=== PATIENT | female | born 2000 | race Caucasian/White ===

== ENCOUNTER 2021-06-05 19:05 | Inpatient (IN) | payer OTHER ==
[~2021-06-05] VITALS: Ht 161 cm; Wt 107.8 kg
[2021-06-05 19:55] VITALS: BP 122/74
[2021-06-05 21:53] LABS: BASOPHILS % (AUTO) 0 % (0-10); EOSINOPHILS % (AUTO) 0 % (0-10); HEMATOCRIT 35 % (35-52); HEMOGLOBIN 11.2 g/dL (11.5-16.0); LYMPHOCYTES # (AUTO) 2.1 10^3/uL (1.0-4.0); LYMPHOCYTES % (AUTO) 22 % (12-44); MEAN CORPUSCULAR HEMOGLOBIN 30 pg (25-34); MEAN CORPUSCULAR HGB CONC 32 g/dL (32-36); MEAN CORPUSCULAR VOLUME 92 fL (80-99); MEAN PLATELET VOLUME 9.8 fL (9.0-12.2); MONOCYTES # (AUTO) 0.7 10^3/uL (0.0-1.0); MONOCYTES % (AUTO) 7 % (0-12); NEUTROPHILS # (AUTO) 6.4 10^3/uL (1.8-7.8); NEUTROPHILS % (AUTO) 69 % (42-75); PLATELET COUNT 303 10^3/uL (130-400); WHITE BLOOD COUNT 9.3 10^3/uL (4.3-11.0)
[2021-06-05] MEDS: CATHETER FLUSH 10 ML SYR IV SCH (22:00)
[2021-06-05] MEDS ORDERED: TERBUTALINE INJ 1 MG/ML (BRETHINE) AMP SC PRN (22:30)
[2021-06-05] MEDS ORDERED: LACTATED RINGERS 1,000 ML IV SCH (22:30)
[2021-06-05] MEDS: D5 LR IV SOLUTION 1,000 ML IV SCH (22:34)
[2021-06-05 22:35] VITALS: BP 117/58
[2021-06-05 23:05] VITALS: BP 112/54
[2021-06-05 23:32] VITALS: BP 132/68
[2021-06-06] VITALS (57 sets, daily range): BP systolic 94–128; BP diastolic 51–77
[2021-06-06] MEDS: CATHETER FLUSH 10 ML SYR IV SCH ×2 (06:00→14:43)
[2021-06-06] MEDS: D5 LR IV SOLUTION 1,000 ML IV SCH ×2 (06:46→14:44)
--- NOTE | 2021-06-06 06:52 | History & Physical-OB ---
OB - Chief Complaint & HPI Date/Time Date of Admission: Date of Admission: Jun 05, 2021 at 19:05 Date seen by a Provider: Jun 06, 2021 Time Seen by a Provider: 06:40 Chief Complaint/History OB-Reason for Admission/Chief: Induction of Labor Hx : 1 Hx Para: 0 Expected Date of Delivery: Jun 02, 2021 Gestational Age in Weeks: 40 Gestational Age in Days: 3 Indication for induction: post dates Admission Nurse Assessment Rev: Yes History of Labs GBS negative at 36 weeks. Allergies and Home Medications Allergies Coded Allergies: No Known Drug Allergies (Unverified , 06/05/21) Patient Home Medication List Home Medication List Reviewed: Yes OB - History Hx of Present Care: Yes Ultrasounds: Normal mid trimester US Obstetrical Complications: None Medical Complications: None Patient Past Medical History no chronic medical problems OB - Admission Exam Physical Exam Vitals: Vital Signs 06/06/21 06/06/21 01:00 04:45 Temp 36.0 Pulse 85 Resp 18 B/P (MAP) 94/52 (66) O2 Delivery Room Air HEENT: Moist Membranes Heart: Rhythm Normal Lungs: Clear Abdomen: Gravid Cervical Dilatation: 1cm Effacement: 50% Station: -3 Membranes: Intact Heart Rate: 140's Accelerations: Accelerations Present Short Term Variability: Present Channel Cementer Outsole Machine Variability: Average (6-25) Contractions on Admission: >10 Minutes Apart Intensity: Mild Cantu Scoring Tool (Modified) Dilation (cm): 1-2cm (1) Effacement (%): 31-51% (1) Descent/Station: -3 (0) Cervix Consistency: Medium(1) Cervix Position: Posterior (0) Cantu Score: 3 Labs Laboratory Tests Test 06/05/21 21:25 Range/Units White Blood Count 9.3 4.3-11.0 10^3/uL Red Blood Count 3.76 L 3.80-5.11 10^6/uL Hemoglobin 11.2 L 11.5-16.0 g/dL Hematocrit 35 35-52 % Mean Corpuscular Volume 92 80-99 fL Mean Corpuscular Hemoglobin 30 25-34 pg Mean Corpuscular Hemoglobin Concent 32 32-36 g/dL Red Cell Distribution Width 14.5 10.0-14.5 % Platelet Count 303 130-400 10^3/uL Mean Platelet Volume 9.8 9.0-12.2 fL Immature Granulocyte % (Auto) 1 % Neutrophils (%) (Auto) 69 42-75 % Lymphocytes (%) (Auto) 22 12-44 % Monocytes (%) (Auto) 7 0-12 % Eosinophils (%) (Auto) 0 0-10 % Basophils (%) (Auto) 0 0-10 % Neutrophils # (Auto) 6.4 1.8-7.8 10^3/uL Lymphocytes # (Auto) 2.1 1.0-4.0 10^3/uL Monocytes # (Auto) 0.7 0.0-1.0 10^3/uL Eosinophils # (Auto) 0.0 0.0-0.3 10^3/uL Basophils # (Auto) 0.0 0.0-0.1 10^3/uL Immature Granulocyte # (Auto) 0.1 0.0-0.1 10^3/uL OB - Assessment/Plan/Diagnosis Assessment Assessment: induction of labor (at 40w3d on admit) Admission Dx 1. IUP at term 40w3d Admission Status: Inpatient Order (span 2 midnights) Reason for Inpatient Admission: induction of labor Plan Plan: Induction Induction Method: per Misoprostol Protocol Other Plan -epidural planned -GAGAN Wiley MD Jun 06, 2021 06:52
[2021-06-06] MEDS ORDERED: OXYTOCIN PRE-MIX DRIP 500 ML IV SCH ×2 (07:00→18:15)
[2021-06-06] MEDS ORDERED: fentaNYL 2 mcg/ml BUPIVA 0.125 100 ML ONE (09:11)
[2021-06-06] MEDS ORDERED: BUPIVACAINE 0.25% 30 ML (SENSORCAINE) VIAL ONE (09:59)
[2021-06-06] MEDS ORDERED: fentaNYL INJ 100 MCG/2 ML AMP ONE (09:59)
[2021-06-06] MEDS ORDERED: ONDANSETRON 4 MG/2 ML (SDV) Z0FRAN IV PRN (10:00)
[2021-06-06] MEDS ORDERED: CATHETER FLUSH 10 ML SYR IV PRN (10:00)
[2021-06-06] MEDS ORDERED: diphenhydrAMINE 50 MG/ML INJ (BENADRYL) IV PRN (10:00)
[2021-06-06] MEDS ORDERED: LACTATED RINGERS 1,000 ML IV ONE (10:00)
[2021-06-06] MEDS ORDERED: NALOXONE 0.4 MG/ML 1 ML (NARCAN) VIAL IV PRN ×2 (10:00→18:15)
[2021-06-06] MEDS ORDERED: fentaNYL 2 mcg/ml BUPIVA 0.125 100 ML IV SCH (10:00)
[2021-06-06] MEDS ORDERED: MEPIVACAINE (CARBOCAINE) 2% 50 ML VIAL ONE (17:22)
--- NOTE | 2021-06-06 18:11 | OB Labor & Delivery Record ---
L&D History Date of Service Date of Service: Jun 06, 2021 History Expected Date of Delivery: Jun 02, 2021 Gestational Age in Weeks: 40 Hx : 1 Hx Para: 1 Complications Events: Routine care Operative Indications (Cesarea: N/A-Vaginal Delivery Intrapartal Events: None L&D Stage1 Stage One Onset of Labor - Date: Jun 06, 2021 Onset of Labor - Time: 06:45 Monitors and Tracing Monitor Mode: Internal Heart Rate: 140 Monitor Accelerations: Uniform Monitor Decelerations: None Station: -3 Usp Variability: Average (6-10) Short Term Variability: Present Presentation: Vertex Vital Signs VS - Last 72 Hours, by Label 06/05/21 06/05/21 06/05/21 06/05/21 19:55 19:55 22:35 23:05 Temp 36.0 36.0 36.0 Pulse 92 92 86 85 Resp 18 18 18 18 B/P (MAP) 122/74 (90) 117/58 (77) 112/54 (73) Pulse Ox 99 99 O2 Delivery Room Air Room Air Room Air Room Air 06/05/21 06/06/21 06/06/21 06/06/21 23:32 01:00 03:45 04:45 Temp 36.0 Pulse 81 75 83 85 Resp 18 18 18 18 B/P (MAP) 132/68 (89) 109/72 (84) 113/56 (75) 94/52 (66) O2 Delivery Room Air Room Air Room Air Room Air 06/06/21 06/06/21 06/06/21 06/06/21 05:45 06:45 07:32 08:51 Temp 36.0 36.5 36.5 Pulse 67 80 90 Resp 18 18 18 B/P (MAP) 102/60 (74) 119/69 (86) 111/59 (76) O2 Delivery Room Air Room Air Room Air 06/06/21 06/06/21 06/06/21 06/06/21 09:23 09:40 09:50 10:04 Temp 35.7 Pulse 90 87 96 109 Resp 18 18 18 18 B/P (MAP) 124/67 (86) 113/64 (80) 122/64 (83) 111/77 (88) Pulse Ox 99 O2 Delivery Room Air Room Air Room Air Room Air 06/06/21 06/06/21 06/06/21 06/06/21 10:07 10:10 10:13 10:16 Pulse 109 109 92 97 Resp 18 18 18 18 B/P (MAP) 109/73 (85) 119/77 (91) 116/66 (83) 109/63 (78) Pulse Ox 100 100 99 99 O2 Delivery Room Air Room Air Room Air Room Air 06/06/21 06/06/21 06/06/21 06/06/21 10:19 10:22 10:25 10:28 Temp 36.6 Pulse 100 84 82 83 Resp 18 18 18 18 B/P (MAP) 110/60 (77) 103/63 (76) 108/60 (76) 108/60 (76) Pulse Ox 99 99 98 98 O2 Delivery Room Air Room Air Room Air Room Air 06/06/21 06/06/21 06/06/21 06/06/21 10:30 10:38 10:45 10:50 Pulse 82 82 81 98 Resp 18 18 18 18 B/P (MAP) 112/60 (77) 109/57 (74) 115/60 (78) 108/56 (73) Pulse Ox 98 99 99 98 O2 Delivery Room Air Room Air Room Air Room Air 06/06/21 06/06/21 06/06/21 06/06/21 10:55 11:00 11:10 11:30 Temp 36.6 Pulse 93 89 82 77 Resp 18 18 18 18 B/P (MAP) 109/59 (76) 111/58 (75) 117/60 (79) 103/58 (73) Pulse Ox 99 100 99 98 O2 Delivery Room Air Room Air Room Air Room Air Signs of Distress by FHT Signs of Distress no Rupture of Membranes Spontaneous Ruture of Membrane: No Amniotic Membrane Rupture Time: 0645 Amniotic Membrane Fluid Desc.: Clear Vaginal Bleeding Description: None L&D Stage2 Stage Two Stage II Date: Jun 06, 2021 Stage II Time: 17:31 Monitors and Tracing Monitor Mode: Internal Heart Rate: 140 Monitor Accelerations: Uniform Usp Variability: Average (6-10) Short Term Variability: Present Position: Left Occiput Anterior Presentation: Vertex Signs of Distress by FHT Signs of Distress no Cord Descript/Complications Cord Vessel Description: 3 Vessels Delivery Type Infant Delivery Method: Spontaneous Vaginal Anterior Shoulder: Left Episiotomy/Perineal Laceration Laceraction(s)/Extensions: Yes Episiotomy Description: Midline, Perineal Extension/lac, 2nd degree Sutures Used: Vicryl Condition of Infant Delivery 1 minute Comment: 9 5 minute Comment: 9 Condition of Infant Condition of Infant: Living Exam: No Observed Abnormalities Resuscitation Resuscitation: N/A - Spontaneous Resp L&D Stage3 Stage Three Stage III Date: Jun 06, 2021 Stage III Time: 17:35 Pictocin Pitocin Administration mu/min: 12 Pitocin ml/hr: 12 Pitocin Administration Comment: 1354- PITOCIN INCREASED Placenta Delivery Placenta Delivery: Spontaneous Delivery Summary Summary Estimated blood loss (mL): 400 Condition of Delivery Examined: Cervix Examined Post Hemorrhage: No Intervention Required none GAGAN BRAY MD Jun 06, 2021 18:11
[2021-06-06] MEDS ORDERED: BENZOCAINE/MENTHOL (DERMOPLAST) 56 ML CAN TP PRN (18:15)
[2021-06-06] MEDS ORDERED: MEASLES,MUMPS,RUBELLA 1 EA INJ SQ ONE (18:15)
[2021-06-06] MEDS ORDERED: TETANUS,DIPTH,PERTUSS P/F (BOOSTRIX) 0.5 ML VIAL IM ONE (18:15)
[2021-06-06] MEDS ORDERED: WITCH HAZEL(TUCKS) 40 EA JAR TOP PRN (18:15)
[2021-06-06] MEDS ORDERED: CATHETER FLUSH 10 ML SYR IV SCH (22:00)
[2021-06-06] MEDS: IBUPROFEN 600 MG (MOTRIN) TAB PO SCH (22:51)
[2021-06-06] MEDS: DOCUSATE SODIUM 100 MG (COLACE) CAP PO SCH (22:52)
[2021-06-06] MEDS: ACETAMINOPHEN 500 MG TAB (TYLENOL) PO SCH (22:52)
[2021-06-07 04:00] VITALS: BP 117/58
[2021-06-07 06:01] LABS: BASOPHILS % (AUTO) 0 % (0-10); EOSINOPHILS % (AUTO) 0 % (0-10); HEMATOCRIT 28 % (35-52); HEMOGLOBIN 8.9 g/dL (11.5-16.0); LYMPHOCYTES # (AUTO) 2.7 10^3/uL (1.0-4.0); LYMPHOCYTES % (AUTO) 20 % (12-44); MEAN CORPUSCULAR HGB CONC 32 g/dL (32-36); MEAN CORPUSCULAR VOLUME 91 fL (80-99); MEAN PLATELET VOLUME 9.7 fL (9.0-12.2); MONOCYTES # (AUTO) 1.3 10^3/uL (0.0-1.0); MONOCYTES % (AUTO) 9 % (0-12); NEUTROPHILS # (AUTO) 9.6 10^3/uL (1.8-7.8); NEUTROPHILS % (AUTO) 70 % (42-75); PLATELET COUNT 261 10^3/uL (130-400); WHITE BLOOD COUNT 13.7 10^3/uL (4.3-11.0)
[2021-06-07 06:04] LABS: MEAN CORPUSCULAR HEMOGLOBIN 29 pg (25-34)
[2021-06-07] MEDS: IBUPROFEN 600 MG (MOTRIN) TAB PO SCH ×3 (06:43→18:09)
[2021-06-07 07:35] VITALS: BP 116/73
[2021-06-07] MEDS: DOCUSATE SODIUM 100 MG (COLACE) CAP PO SCH (08:33)
[2021-06-07] MEDS: ACETAMINOPHEN 500 MG TAB (TYLENOL) PO SCH ×2 (08:34→14:15)
[2021-06-07 12:00] VITALS: BP 107/59
[2021-06-07 16:56] VITALS: BP 102/62
--- NOTE | 2021-06-07 19:37 | Discharge Inst-Women's Service ---
Discharge Inst-Women's Serv Depart Medication/Instructions New, Converted or Re-Newed RX: Other Instructions May take over the counter ibuprofen 2-3 tabs every 6hr prn cramps or pain. Problems Reviewed?: Yes Consults/Follow Up Additional Follow Up: Yes (Dr Bray in 6 weeks at [facility]) Activity Activity: Activity as Tolerated Nothing Inside Vagina: No [place] (for 6 weeks. You will need to heal.) Diet Discharge Diet: Regular Diet Return to The Hospital For: as below Symptoms to Report to : Bleeding Excessive, Constipation(Persistant), Fever Over 101 Degrees F, Vaginal Discharge Foul For Any Problems or Questions: Contact Your Physician GAGAN BRAY MD Jun 07, 2021 19:37
--- NOTE | 2021-06-07 19:40 | Discharge Summary ---
Diagnosis/Chief Complaint Date of Admission Jun 05, 2021 at 19:05 Date of Discharge Jun 07, 2021 Admission Diagnosis Admission Diagnosis 1. IUP at 40 weeks Discharge Diagnosis 1. IUP at 40 weeks 2. Anemia, post delivery Chief Complaint/HPI Chief Complaint/HPI 21 yo G1 now T1L1 who initially presented to L&D for induction of labor due to post dates. Her EDC was June 03, 2021. Discharge Summary-OBS Procedures 1. Epidural per anesthesia 2. 3. Repair of 2nd degree perineal laceration beyond the MLE Discharge Physical Examination Allergies: Coded Allergies: No Known Drug Allergies (Unverified , 06/05/21) Vitals & I&Os Intake and Output 06/07/21 00:00 Intake Total 2000 ml Balance 2000 ml Vital Sign - Last 12Hours Date Time Temp Pulse Resp B/P (MAP) Pulse Ox O2 Delivery O2 Flow Rate FiO2 06/07/21 16:56 36.2 86 18 102/62 (75) 98 Room Air General Appearance: No Acute Distress Respiratory: Clear to Auscultation Abdominal: Soft (with uterus firm) Hospital Course Was the Problem List Reviewed?: Yes Labs Laboratory Tests 06/07/21 05:50: White Blood Count 13.7H, Red Blood Count 3.02L, Hemoglobin 8.9#L, Hematocrit 28L , Mean Corpuscular Volume 91, Mean Corpuscular Hemoglobin 29, Mean Corpuscular Hemoglobin Concent 32, Red Cell Distribution Width 14.5, Platelet Count 261, Mean Platelet Volume 9.7, Immature Granulocyte % (Auto) 1, Neutrophils (%) (Auto) 70, Lymphocytes (%) (Auto) 20, Monocytes (%) (Auto) 9, Eosinophils (%) (Auto) 0, Basophils (%) (Auto) 0, Neutrophils # (Auto) 9.6H, Lymphocytes # (Auto) 2.7, Monocytes # (Auto) 1.3H, Eosinophils # (Auto) 0.0, Basophils # (Auto) 0.0, Immature Granulocyte # (Auto) 0.1 Discharge Instructions to patient/family Please see electronic discharge instructions given to patient. Discharge Medications Reviewed and agree with Discharge Medication list on patient's Discharge Instruction sheet GAGAN BRAY MD Jun 07, 2021 19:40
[2021-06-07] MEDS ORDERED: FERR-84 PO (19:42)
[2021-06-07] MEDS ORDERED: DCS100C PO (19:42)
--- NOTE | 2021-06-10 19:09 | Physician Query Clarification ---
PQ-Further Specificity Admission/Discharge Admission Date: Jun 05, 2021 at 19:05 Discharge Date: Jun 07, 2021 at 20:05 The medical record reflects the following clinical scenario: History/Risk Factors: Anemia, post delivery, blood loss 400 mL Clinical Findings: Hgb 11.2 on admission, 8.9 on 06/07 Treatment: Ferrous Sulfate, 325mg Question: Can you further specify anemia per the clinical indicators above? Please document a response in the Progress Notes or Discharge Summary. 1. Acute blood loss anemia, anemia puerperium 2. anemia, not acute blood loss 3. Other, with explanation of the clinical findings. 4. Clinically undetermined, no explanation for the clinical findings. PHYSICIAN RESPONSE Can you specify per above: 1 Please remember a lack of response to the above will prompt a phone page by CDI/Coding staff. In responding to this query, please exercise your independent professional judgment. The purpose of this communication is to more accurately reflect the complexity of your patients condition. The fact that a question is asked does not imply that any particular answer is desired or expected. Thank you for your timely response to this clarification. Requestors name: Bibi THIS PHYSICIAN QUERY FORM IS A PERMANENT PART OF THE MEDICAL RECORD BIBI LITTLEJOHN Jun 10, 2021 19:09 GAGAN BRAY MD Jun 12, 2021 06:49
== END 2021-06-07 20:05 | disposition home or self-care (01) | DRG 806 ==
LOC: LDRP 19:05
PROVIDERS: ADMIT Family Medicine; ATTEND Family Medicine
PROC: 3E0DXGC Introduction of Other Therapeutic Substance into Mouth and Pharynx, External Approach (ICD-10-PCS; 2021-06-05)
PROC: 10E0XZZ Delivery of Products of Conception, External Approach (ICD-10-PCS; principal; 2021-06-06)
PROC: 0KQM0ZZ Repair Perineum Muscle, Open Approach (ICD-10-PCS; 2021-06-06)
PROC: 0W8NXZZ Division of Female Perineum, External Approach (ICD-10-PCS; 2021-06-06)
DX: O48.0 Post-term pregnancy (principal); D62 Acute posthemorrhagic anemia; Z37.0 Single live birth; Z3A.40 40 weeks gestation of pregnancy; O90.81 Anemia of the puerperium; O70.1 Second degree perineal laceration during delivery
CPT/HCPCS: 36415; 85025; 86850; 86900; 86901